=== PATIENT | female | born 1945 | race Caucasian/White ===

== ENCOUNTER 2018-10-01 21:31 | Inpatient (IN) | payer MEDICAID, MEDICARE | END 2018-10-07 21:55 | disposition home health service (06) | LOC: ED 21:31 → DU 10-02 00:31 → MU 10-04 14:44 → ED 21:31 → DU 10-02 00:31 → MU 10-04 14:44 → ED 21:31 → DU 10-02 00:31 → MU 10-04 14:44 → ED 21:31 → DU 10-02 00:31 → ED 21:31 → DU 10-02 00:31 → ED 21:31 → DU 10-02 00:31 → ED 21:31 → DU 10-02 00:31 → ED 21:31 → DU 10-02 00:31 → ED 21:31 → DU 10-02 00:31 | DX: T80.211A Bloodstream infection due to central venous catheter, initial encounter (principal); I35.8 Other nonrheumatic aortic valve disorders; I11.0 Hypertensive heart disease with heart failure; I50.9 Heart failure, unspecified; E03.9 Hypothyroidism, unspecified; E78.5 Hyperlipidemia, unspecified; Y83.8 Other surgical procedures as the cause of abnormal reaction of the patient, or of later complication, without mention of misadventure at the time of the procedure; D50.9 Iron deficiency anemia, unspecified; Y92.89 Other specified places as the place of occurrence of the external cause; Z79.82 Long term (current) use of aspirin; Z96.651 Presence of right artificial knee joint; Z68.34 Body mass index [BMI] 34.0-34.9, adult ==

== ENCOUNTER 2018-10-12 10:09 | Inpatient (IN) | payer MEDICAID, MEDICARE ==
[~2018-10-12] VITALS: Ht 177.8 cm; Wt 121.1 kg
[~2018-10-12 10:09] MED LIST: ASPIRIN CHILDRE81 MG PO; CARVEDILOL25 M1 PO; COZAAR100 MG PO; LEVOTHYROXIN0.125 M2 PO; LIPI10 PO; PANTOPRAZOLE SO40 M1 PO; ROC1I IV; VANCO 1 GR1 GM/150 M IV
--- NOTE | 2018-10-12 10:34 | NUR ---
PT CAME TO THE ED TODAY WITH CO ABNORMAL LABS. PT STATES SHE WAS JUST RELEASED HERE AFTER BEING ADMITTED FOR FEVER 5 DAYS AGO. PT STATES SHE RECEIVED A CALL STATING THAT HER K+ AND CALCIUM WERE LOW. PT STATES " I FEEL FINE, I JUST CAME HERE BECAUSE OF MY LABS." PT HAS A NOTED PIC LINE TO L ARM WHICH PT STATES SHE IS RECEIVING ABX FROM AT HOME FOR PERICARDITIS. AT THIS TIME PT IS AWAKE AND ALERT. BREATHING EVEN AND UNLABORED. DR GOLD AT BEDSIDE FOR MSE. PT IS HOOKED UP TO FULL MONITORS, SIDE RAILS UP, CALL LIGHT IN REACH, WILL CONTINUE TO MONITOR.
--- NOTE | 2018-10-12 10:54 | NUR ---
FLUID BOLUS INITIATED PER MD ORDER. NO OTHER ORDERS AT THIS TIME
--- NOTE | 2018-10-12 11:03 | NUR ---
PT UNABLE TO PROVIDE URINE SAMPLE AT THIS TIME. PT AWARE OF NEED FOR URINE
[2018-10-12 11:04] LABS: PLATELET COUNT 232 x10^3mcL (130-400)
--- NOTE | 2018-10-12 11:04 | NUR ---
PT DRINKING [employer] COFFEE BROUGHT FROM FAMILY. PER OK BY
[2018-10-12 11:06] LABS: RED CELL DISTRIBUTION WIDTH 22.3 % (11.5-14.5)
[2018-10-12 11:28] LABS: CALCIUM 7.1 mg/dL (8.5-10.1); CARBON DIOXIDE 20.2 mmol/L (21-32); CHLORIDE SERUM 102 mmol/L (98-107); CREATININE SERUM 2.4 mg/dL (0.6-1.0); GLUCOSE SERUM 82 mg/dL (74-106); POTASSIUM SERUM 3.6 mmol/L (3.5-5.1); SODIUM SERUM 134 mmol/L (136-145)
[2018-10-12] MEDS ORDERED: [UNRECOGNIZED DRUG - OTHER] IV (11:32)
[2018-10-12] MEDS ORDERED: ROC1I IV (11:32)
[2018-10-12 11:33] LABS: ALBUMIN 2.6 g/dL (3.4-5.0); ALKALINE PHOSPHATASE 67 U/L (46-116); ALT/SGPT 43 U/L (14-59); AST/SGOT 23 U/L (15-37); BILIRUBIN TOTAL 0.7 mg/dL (0.20-1.00); TOTAL PROTEIN, SERUM 6.9 g/dL (6.4-8.2)
[2018-10-12] MEDS ORDERED: VAN1I IV (11:34)
--- NOTE | 2018-10-12 11:47 | NUR ---
PT AMBULATED TO THE RESTROOM WITH STEADY GAIT AND ASSISTED WITH DAUGHTER
[2018-10-12 12:13] LABS: microscopic required? YES; urine erythrocyte 1+ (NEGATIVE)
[2018-10-12] MEDS ORDERED: OSTERA TABLET1 EACH PO (12:31)
--- NOTE | 2018-10-12 12:42 | NUR ---
DR ABAD AT BEDSIDE DISCUSSING RESULTS AND PLAN OF CARE
--- NOTE | 2018-10-12 13:28 | NUR ---
REPORT GIVEN TO VAUGHN MASCORRO ON MS/T FOR FURTHER CARE OF PT
--- NOTE | 2018-10-12 13:50 | NUR ---
RECEIVED PT FROM ED VIA [facility]CE, CAME IN DUE TO ABNORMAL LABS. AAOX4. DENIES HEADACHE/DIZZINESS. ABLE TO FOLLOW COMMANDS. C/O SOB, PLACED ON 2LPM/NC, O2 SAT=93%. DENIES CHEST PAIN/PRESSURE, SINUS TACHYCARDIA, HR AT 111. DENIES ABDOMINAL PAIN/NAUSEA/VOMITING. STATED THAT SHE HAS DIARRHEA X2 WEEKS, HAD 4 EPISODES TODAY. VOIDS. W/ IV SITE ON THE RAC, PATENT AND INTACT. W/ PICC LINE ON THE LUE, LAST DRESSING CHANGED WAS ON 10/10/18, PER PT LAST USE WAS YESTERDAY FOR ANTIBIOTIC ADMINISTRATION. SIDE RAILS UPX2. CALL LIGHT ON REACH. FAMILY AT BEDSIDE. HOB ELEVATED AT 45 DEG. PRIMARY NURSE VAUGHN AT BEDSIDE FOR CONTINUITY OF CARE
[2018-10-12 13:55] VITALS: BP 135/68
[2018-10-12 14:01] VITALS: Ht 177.8 cm; Wt 121.1 kg
--- NOTE | 2018-10-12 14:31 | NUR ---
PT RESTING IN BED AT THIS TIME, REPORTS SOB, STARTED ON 2L O2 VIA NC, UP TO 4L AT THIS TIME. O2 SAT 92-95, HR 115 AT THIS TIME. PT DENIED PAIN, ALERT AND ORIENTED X3. WILL CONTINUE TO MONITOR.
[2018-10-12 17:18] VITALS: BP 104/47
--- NOTE | 2018-10-12 18:49 | NUR ---
PT EATING AT THE BEDSIDE AT THIS TIME, IN NAD, O2 SAT 95 ON RA AT THIS TIME. PT ADVISED TO EAT WELL, AND USE I.S AT THE BEDSIDE. PT BP TO LOW STILL TO GIVE LASIX, MED RETURNED TO PYXIS. WILL REPORT TO MEDICAL ASSEMBLER NURSE AND ENDORSE CARE.
--- NOTE | 2018-10-12 20:00 | NUR ---
RECEIVED PT IN BED, RESTING QUIETLY.ALERT AND ORIENTED.DENIES HEADACHE/DIZZINESS. RESP. EVEN AND UNLABORED. ON ROOM AIR AT THIS TIME. DENIES SOB, NO ACUTE DISTRESS NOTED.SR /ST ON THE MONITOR, DENIES CP OR ANY DISCOMFORT AT THIS TIME. IVF, NS AT 10ML/HR, INTACT AND INFUSING TO RAC.SITE CLEAR. PICC LINE TO LUE.INTACT. VOIDING FREELY. ABLE TO USE THE BSC. ASSISTED WITH HS CARE, CALL LIGHT WITHIN REACH. WILL CONTINUE TO MONITOR.
[2018-10-12 20:34] VITALS: BP 106/73
--- NOTE | 2018-10-12 22:20 | NUR ---
CALLED TO PATIENT'S ROOM DUE TO SOB AND INCREASED WOB. PATIENT FOUND ON RA SPO2 82%, RR 28, BREATH SOUNDS DIMINISHED. RT BRIDGETT PLACED PATIENT ON 4L N/C, SPO2 UP TO 98% WITH CONTINUED INCREASED WOB. TALKED TO DR. GUTHRIE MYSELF FOR RTP FOR HHN TX'S, THE PATIENT HAD ORDERED PREVIOUS VISIT. HHN GIVEN WITH IMPROVED AEARATION AND SUBJECTIVE RELIEF. PATIENT STILL BREATHING HEAVILY. MOST RECENT CXR SHOWS PULMONARY CONGESTION, BNP IN 700'S FROM YESTERDAY. PLACED ON 3L N/C POST TX, WILL NOTIFY LUDWIN.
[2018-10-12 22:48] VITALS: BP 128/63
[2018-10-12 23:40] VITALS: BP 128/63
--- NOTE | 2018-10-12 23:48 | NUR ---
COMPLAINED OF SOB, PLACED 02 AT 3L/MIN VIA NC, LASIX IV ORDERED FOR 6PM, NOT GIVEN AT THAT TIME , GIVEN. B/P SHOWS 123/67,SAT. WELL. REMAINS ON RT PROTOCOL, TREATMENT GIVEN BY RT. ALEX. WELL. RESTING QUIETLY IN BED, WITH EYES CLOSED,APPEARS ASLEEP, EASILY AROUSABLE. NO ACUTE DISTRESS NOTED. WILL CONTINUE TO MONITOR.
--- NOTE | 2018-10-13 01:40 | NUR ---
EYES CLOSED AT THIS TIME, APPEARS ASLEEP, EASILY AROUSABLE. [address], ALEX. WEL. NO ACUTE DISTRESS NOTED. CALL LIGHT WITHIN REACH.WILLL CONTINUE TO MONITOR.
[2018-10-13 04:26] VITALS: BP 105/82
[2018-10-13 06:30] LABS: BASOPHIL % 0.3 % (0-2); PLATELET COUNT 225 x10^3mcL (130-400)
[2018-10-13 06:45] LABS: CALCIUM 7.2 mg/dL (8.5-10.1); CARBON DIOXIDE 16.3 mmol/L (21-32); CHLORIDE SERUM 103 mmol/L (98-107); CREATININE SERUM 2.6 mg/dL (0.6-1.0); GLUCOSE SERUM 84 mg/dL (74-106); POTASSIUM SERUM 3.9 mmol/L (3.5-5.1); SODIUM SERUM 136 mmol/L (136-145)
--- NOTE | 2018-10-13 06:46 | NUR ---
AFEBRILE AND VITAL SIGNS STABLE. DENIES CP OR ANY DISCOMFORT AT THIS TIME. DUE MEDS GIVEN ORDERED, ALEX. WELL. RESP. EVEN AND UNLABORED. NO ACUTE DISTRESS NOTED. IVF INTACT AND INFUSING WELL, SITE CLEAR. VOIDING FREELY. NO COMPLAINTS NOTED AT THIS TIME. WILL ENDORSE TO INCOMING NURSE.
[2018-10-13 06:54] LABS: RED CELL DISTRIBUTION WIDTH 22.2 % (11.5-14.5)
[2018-10-13 07:35] VITALS: BP 144/74
[2018-10-13 09:19] VITALS: BP 144/78
--- NOTE | 2018-10-13 09:30 | NUR ---
AT 0710 - RECEIVED PATIENT FROM NIGHT NURSE. SLEEPING. RESPIRATIONS REGULAR. MONITOR SHOWING SINUS TACH; RATE 110. IV AT TKO RATE OF 10ML/HR. AT 0740 - PATIENT REPORTS BREATHING DIFFICULTIES. APPEARS ANXIOUS. SAT UP AND REPOSITIONED IN BED. REASSURANCE PROVIDED. BP 144/74. HR 118. RR 30. O2 SAT 96% TEMP 100.2 CALLED RT FOR BREATHING TREATMENT. AT 0755 - GIVEN SCHEDULED DOSE OF IV LASIX. PATIENT RECEIVING BREATHING TREATMENT. AT 0830 - PATIENT RESTING QUIETLY. APPEARS COMFORTABLE AT THIS TIME. AT 0915 - HAS USED BSC TO VOID AND FOR BM.
--- NOTE | 2018-10-13 11:55 | NUR ---
Discount pharmacy card and list to low cost medical clinics given to patient by Lizzie.
--- NOTE | 2018-10-13 12:30 | NUR ---
PATIENT HAS BEEN AMBULATING TO BATHROOM FOR TOILET NEEDS. HAS HAD SEVERAL LOOSE BM. APPEARS LESS SHORT OF BREATH.
[2018-10-13 12:51] VITALS: BP 93/47
--- NOTE | 2018-10-13 15:26 | NUR ---
IV IN RAC OUT OF VEIN. IV RESITED IN RFA AND ROCEPHIN NOW IN PROGRESS. BEING SEEN BY MACHINE BUNCH MAKER AT THIS TIME.
[2018-10-13 16:21] VITALS: BP 91/49
--- NOTE | 2018-10-13 18:26 | NUR ---
AT 1740 - IV INFUSION OF NaHCO3 IN 1/2 NS AT 75 ML/HR. PATIENT C/O CHILLS. NO FEVER AT THIS TIME. AT 1820 - C/O HEADACHE AND MEDICATED WITH TYLANOL PER EMAR. RESTING INBED. DECLINED FOOD AT THIS TIME. WILL ENDORSE CARE TO NIGHT NURSE.
--- NOTE | 2018-10-13 19:45 | NUR ---
AWAKE AND VERBALLY RESPONSIVE. ABLE TO MAKE NEEDS KNOWN./ SKIN WARM AND DRY TO TOUCH. RESPIRATION EVEN AND UNLABORED WITH DIMINISHED LUNG SOUN BILATERAL BASES. ON TELE #5 WITH SR AT 85/MIN. PICC LINE ON THE ROBBIE, NO USING AT THIS TIME, IV ACCESS AT THE RFA #22 INTACT AND PATENT WITH NAHCO3 AT 75ML/HR TOLERATING WELL. DENIES ANY CHEST PAIN/DISCOMFORT AT THSI TIME.
[2018-10-13 22:18] VITALS: BP 90/49
--- NOTE | 2018-10-13 22:20 | NUR ---
OTWV=231.9F, TYLENOL 650MG PO PRN MEDICATION FOR FEVER. DR MURRAY MADE AWARE OF INTERMITTENT FEVER. DR MURRAY MADE NEW ORDERS AND CARRIED OUT. WILL START VANO PO . DIFLUCCAN IV EMPIRIC MANAGEMENT OF ENDOCARDITIS. DR MURRAY TALKED TO PATIENT REGARDING PT'S CONDITION. WILL CONTINUE TO MONITOR.
--- NOTE | 2018-10-13 22:20 | NUR ---
ZMBR=660.9F. COOLIMG MEASURES RENDERED. OFFERED TYLENOL 650MG ,M PT REFUSED AT THIS TIME. DR MURRAY MADE AWARE OF INTERMITTENT FEVER. TALKED TO PT REGARDING CURRENT PT'S CONDITION AND CURRENT PLAN OF TREATMENT AND CARE . STATED WILL ORDER ADDITIONAL EMPIRIC ATB FOR MANAGEMTN OF ENDOCARDITIS VANCO PO AND DIFLUCAN IV. WILL ALSO COLLECT RUPINDER FOR D-DIFFICILE TOXIN WHEN BM IS AVAILABLE.
[2018-10-14] VITALS (7 sets, daily range): BP systolic 90–105; BP diastolic 40–71
--- NOTE | 2018-10-14 | NUR ---
TEMP RECHECK 98.4F. ABLE TO SLEEP AT SHORT INTERVALS. ABLE TO AMBULATE TO BATRHROOM FOR BLADDER ELIMINATION. NO BM AT THIS TIME.
--- NOTE | 2018-10-14 06:05 | NUR ---
TO INCOMING SHIFT TO NO BM THIS SHIFT. WILL ENDORSE TO INCOMING SHIFT FOR FOLLOW UP STOOL COLLECTION FOR S-
--- NOTE | 2018-10-14 06:08 | NUR ---
NO BM THIS SHIFT. WILL ENDORSE TO INCOMING SHIFT FOR FOLLOW UP OF COLLECTING STOOL SPECIMNE FOR C-DIFF. NO ADVERSE REACTION NOTED FROM ATB THERAPY. ALL NEEDS ATTEDNED.
[2018-10-14 07:38] LABS: BASOPHIL % 0.3 % (0-2); PLATELET COUNT 228 x10^3mcL (130-400); RED CELL DISTRIBUTION WIDTH 22.3 % (11.5-14.5)
[2018-10-14 08:02] LABS: MAGNESIUM 1.7 mg/dL (1.8-2.4); PHOSPHOROUS 5.5 mg/dL (2.5-4.9)
[2018-10-14 08:13] LABS: CARBON DIOXIDE 14.8 mmol/L (21-32); CHLORIDE SERUM 102 mmol/L (98-107); CREATININE SERUM 3.1 mg/dL (0.6-1.0); GLUCOSE SERUM 75 mg/dL (74-106); POTASSIUM SERUM 3.7 mmol/L (3.5-5.1); SODIUM SERUM 134 mmol/L (136-145)
--- NOTE | 2018-10-14 10:19 | NUR ---
AT 0710 - RECEIVED PATIENT FROM NIGHT NURSE. SLEEPING. RESPIRATIONS REGULAR. MONITOR SHOWING SINUS RHYTHM; RATE 80'S. IV INFUSING 1/2NS WITH NAHCO3 AT 75 ML/HR. AT 0720- - PATIENT HAVING OCCASIONAL PVC'S ON THE MONITOR. CONTINUING TO MONITOR. AT 0800 - AWAKE, ALERT AND ORIENTED. NO C/O PAIN. AMBULATED TO BATHROOM. PATIENT REPORTS STIL HAVING DIARRHEA. AWARE OF NEED TO COLLECT SPECIMEN. PRESPIRATIONS REGULAR WITH SLIGHT SOB ON EXERTION. AT 0850 - COLLECTED STOOL AND TAKEN TO LAB FOR C-DIFF. AT 0920 - COMMENCED ON DIFLUCAN. FIRST DOSE IN PROGRESS. AT 1025 - PATIENT'S DAUGHTER AT BEDSIDE. SPOKE WITH PATIENT AND DAUGHTER ABOUT CURRENT PLAN OF CARE.
--- NOTE | 2018-10-14 10:24 | NUR ---
CALLED TO PHARMACIST AND SPOKE WITH JOHNEI AND MADE AWARE THE RESULTS OF THE VANCO RANDOM.
--- NOTE | 2018-10-14 11:09 | NUR ---
AT 1052 - PATIENT HAD SHORT RUN OF V-TACH (5 CONSECUTIVE PVC BEATS). PATIENT ASYMPTOMATIC. BP 92/63 HR 87. RR 22. TEMP 98.7. NO CHEST PAIN. AT 1059 - SPOKE WITH LATA FAGAN. MADE AWARE OF V-TACH. NO CHANGE IN ORDERS.
--- NOTE | 2018-10-14 12:22 | NUR ---
AT 1150 - C/O HEADACHE. MEDICATED WITH TYLANOL PER EMAR. APTIENT C/O CHILLS. TEMP 99.4 AT 1215 - PATIENT HAVING BREATHING TREATMENT. SHARON CRACKLES ON AUSCULTATION. SPOKE WITH LATA FAGAN - LASIX WAS PLACED ON HOLD YESTERDAY. RECEIVED ORDER FOR 1 X IV LASIX 20 MG. BP 90/57 MAP 68. PER EMERGENCY VEHICLE OPERATOR RYLAN, OK TO GIVE LASIX WITH THIS BP.
--- NOTE | 2018-10-14 15:22 | NUR ---
PATIENT VOIDED 1 X SINCE RECEIVING LASIX. UNABLE TO MEASURE AMOUNT DUE TO URINE GOING OUTSIDE OF CONTAINER. SCHEDULED ROCEPHIN NOW IN PROGRESS. FAMILY AT BEDSIDE.
--- NOTE | 2018-10-14 18:25 | NUR ---
AWAKE, ALERT AND ORIENTED. MONITOR SHOWING SINUS RHYTHM WITH OCCASIONAL PVC. NO CHEST PAIN. RESPIRATIONS REGULAR. ON O2 VIA NC AT 2L. AMBULATES TO BATHROOM FOR TOILET NEEDS BUT PATIENT APPEARS TO HAVE REDUCED URINE OUTPUT. DIARRHEA X 1 ONLY THIS PM. AWAITING RESULT FOR C-DIFF. IV INFUSING SODIUM BICARB AT 75 ML/HR. FAMILY MEMBERS AT BEDSIDE AND ATTENTIVE TO PATIENT. WILL ENDORSE CARE TO NIGHT NURSE.
--- NOTE | 2018-10-14 19:30 | NUR ---
A/O x4. ON TELE #5, NSR, DENIES ANY CHEST PAIN OR PRESSURE. PULSES ARE PRESENT. NO EDEMA NOTED. DIMINISHED LUNG SOUNDS ON BLL. ON 4L NC, SLIGHT SOB WITH ACTIVITY. WHEN TALKING FOR PROLONG TIME YOU CAN SEE THE PT GET OUT OF BREATH. EQUAL CHEST RISE AND FALL. BOWEL SOUNDS PRESENT. PT C/O LOOSE STOOLS. DENIES ANY ABD PAIN OR DISCOMFORT. SKIN WARM AND INTACT. DENIES ANY PAIN AT THIS TIME. IV ON RFA INTACT AND PATENT. NO SIGN OF IRRITATION OR INFILTRATION NOTED. PICC ON ROBBIE INTACT AND CLEAN. FAMILY IS AT BEDSIDE. BED IS AT LOWEST SETTING. TORIN LIGHT WITHIN REACH. WILL CONTINUE TO MONTIOR.
--- NOTE | 2018-10-15 00:33 | NUR ---
PT RESTING IN BED WITH BOTH EYES CLOSED. BREATHING EVEN AND UNALBORED. NO SIGN OF DISTRESS NOTED. ON 2L NC. BED AT LOWEST SETTING. CALL LIGHT WITHIN REACH. WILL CONTINUE TO MONTIOR.
--- NOTE | 2018-10-15 01:38 | NUR ---
PT WENT FROM SR TO AFIB. PT IS SHOWS NO SYMTPOMS. B/P 101/59 (53), HR 120S, RR 21, SPO2 99%. DENIES ANY CHEST PAIN OR PRESSURE. MD DIOR IS MADE AWARE. MD TO INPUT ORDERS. WILL CONTINUE TO MONITOR.
--- NOTE | 2018-10-15 02:17 | NUR ---
EKG WAS COMPLETED AND IT SHOWED AFIB. CARDIZEM 5MG WAS PUSHED PER EMAR. WILL CONTINUE TO MONITOR.
--- NOTE | 2018-10-15 02:30 | NUR ---
B/P IS 97/59 (69), HR 103 AFTER MED PUSH. MD DIOR AWARE. WILL CONTIUE TO MONITOR.
[2018-10-15 04:49] VITALS: BP 107/68
--- NOTE | 2018-10-15 06:56 | NUR ---
PT IS RESTING IN BED. STILL SHOWING A FIB. MD DIOR IS AWARE. NO OTHER ACUTE EVENT OCCURED AT NIGHT. IV INTACT AND CLEAN. BED IS AT LOWEST SETTING. CALL LIGHT WITHIN REACH. WILL ENDORSE TO AM NURSE.
[2018-10-15 07:43] LABS: CALCIUM 6.6 mg/dL (8.5-10.1); CARBON DIOXIDE 17.4 mmol/L (21-32); CHLORIDE SERUM 101 mmol/L (98-107); GLUCOSE SERUM 89 mg/dL (74-106); POTASSIUM SERUM 3.6 mmol/L (3.5-5.1); SODIUM SERUM 133 mmol/L (136-145)
[2018-10-15 07:53] LABS: BASOPHIL % 0.2 % (0-2); PLATELET COUNT 227 x10^3mcL (130-400)
[2018-10-15 07:55] LABS: RED CELL DISTRIBUTION WIDTH 22.5 % (11.5-14.5)
[2018-10-15 07:56] LABS: rbc morphology (normal/abnorm) ABNORMAL (NORMAL)
--- NOTE | 2018-10-15 08:27 | NUR ---
AT 0720 - RECEIVED PATIENT FROM NIGHT NURSE. AWAKE, ALERT AND ORIENTED. SITTING ON BEDSIDE COMODE. PATIENT C/O HEADACHE. AT 0730 - MEDICATED WITH TYLANOL PER EMAR. AT 0750 - RECEIVED CALL FROM PATIENT'S DAUGHTER, FLORES. UPDATED ON PATIENT. SHE WILL BE IN LATER. PATIENT BACK IN BED. MONITOR SHOWING A-FIB; RATE 102. IV INFUSING NAHCO3 IN 1/2 NS AT 75 ML/HR. RESPIRATIONS REGULAR. WITH SOB ON EXERTION. COARSE BREATH SOUNDS SHARON.
[2018-10-15 08:36] VITALS: BP 92/44
[2018-10-15 09:15] VITALS: BP 104/79
--- NOTE | 2018-10-15 09:28 | NUR ---
SITTING ON SIDE OF BED EATING BREAKFAST. REPROTS RELIEF OF HEADACHE. SPOKE WITH PHARMACIST REGARDING SCHEDULED DOSE OF FLUCONAZOLE - PATIENT'S BUN/CR = 40/4.0. HOLD DOSE FOR TODAY. PHARMACY WILL ADJUST DOSE - REDUCED TO 100 MG Q 48 HR.
--- NOTE | 2018-10-15 09:46 | NUR ---
RECEIVED CALL FROM LATA FAGAN. PATIENT TO BE TRANSFERRED TO ICU FOR AMIODERONE DRIP. SPOKE WITH PATIENT AND MADE HER AWARE.
--- NOTE | 2018-10-15 10:16 | NUR ---
CALLED PATIENT'S DAUGHTER, MILLIE AND INFORMED HER OF PLAN TO TRANSFER PATIENT TO ICU.
--- NOTE | 2018-10-15 10:40 | NUR ---
TONY RN, JUAN RN, MYSELF, MOMO RN AT BEDSIDE. PT TRANSFER FROM 256 TO ICU 6 BY BED. PT IS ABLE TO TRANSFER SELF FROM BED TO BED WITHOUT ASSITS. PT IS AAOX4 ABLE TO FOLLOW VERBAL COMMANDS AND VERBALIZE NEEDS. PT RECIEVING 2LO2 VIA NASAL CANNULA. DIMINISH LUNG SOUNDS TO BL LUNG FARMER. SOB NOTED ON EXCERTION. EVEN CHEST RISE. PT DENIES CHEST PAIN AND HEART PALPITATIONS, PRESSURE TO CHEST. ORIENTED PT TO ROOM AND CALL LIGHT BED AT LOWEST POSITION. CALL LIGHT WITHIN REACH.
--- NOTE | 2018-10-15 10:47 | NUR ---
MOSES TRANSFERRED TO ICU. CARE ENDORSED TO ICU NURSE.
--- NOTE | 2018-10-15 11:05 | NUR ---
AMIODARONE LOADING DOSE ADMINISTERED PER PROTOCOL. PT TOLERATING HR 99.
--- NOTE | 2018-10-15 11:15 | NUR ---
AMIODARONE DRIP AT 1MG/MIN.
[2018-10-15 11:47] VITALS: BP 85/47
--- NOTE | 2018-10-15 13:01 | NUR ---
SPOKE WITH CHLOÉ MASCORRO AND REPORTED PATIENT WITH BP 81/47 (MAP 57) AND PATIENT STATING SHE IS FEELING DIZZY. ORDER RECEIVED TO BOLUS PATIENT WITH 500 ML NS AND MIDODRINE 5 MG PO BID. WILL CARRY OUT ORDERS.
--- NOTE | 2018-10-15 13:06 | NUR ---
MAP TRENDING AT MID 50'S NOTIFIED CHLOÉ GUIDO. PER CHLOÉ GUIDO TO BOLUS PT 500ML NS TO ACHIEVE MAP 65.
--- NOTE | 2018-10-15 14:13 | NUR ---
SPOKE WITH CHLOÉ GUIDO AND REPORTED PATIENT'S BP REMAINS LOW WITH BP 60/45, MAP 49, HR 95 A-FIB AND PATIENT RECEIVED MIDODRINE 5 MG PO APPROX. 20 MINUTES AGO. PER CHLOÉ, TURN AMIO. DRIP OFF AND BOLUS WITH ANOTHER 500 ML NS. WILL CARRY OUT ORDERS. WILL CONTINUE TO MONITOR.
--- NOTE | 2018-10-15 14:14 | NUR ---
AMIO DRIP OFF, 500ML/HR BOLUS IN PLACE.
--- NOTE | 2018-10-15 14:43 | NUR ---
500ML OF NS BOLUS COMPLETED, B/P 83/56 MAP 67.
[2018-10-15 15:00] VITALS: BP 76/52
--- NOTE | 2018-10-15 15:10 | NUR ---
PATIENT C/O FEELING ANXIOUS. ADMINISTER ATIVAN 1 MG IVP FOR ANXIOUSNESS.
--- NOTE | 2018-10-15 15:38 | NUR ---
SPOKE WITH CHLOÉ GUIDO AND REPORTED BP 66/31, MAP 56 WITH HR 102 A-FIB. NEW ORDERS RECEIVED. WILL CARRY OUT ORDERS. WILL CONTINUE TO MONITOR.
--- NOTE | 2018-10-15 15:40 | NUR ---
DHEERAJ RN AT BEDSIDE AND INSERTED #20 GAUGE IV TO RIGHT HAND. GOOD BLOOD RETURN NOTED.
--- NOTE | 2018-10-15 15:50 | NUR ---
USING ASEPTIC TECHNIQUE, #16 ROMANSH MARQUEZ CATHETER INSERTED. SMALL AMOUNT OF CLOUDY URINE RETURNED IN TUBING. PATIENT TOLERATED WITH NO S/S OF DISTRESS.
--- NOTE | 2018-10-15 15:50 | NUR ---
B/P 74/52 MAP 60 HR 113 NEOSYENPHRINE STARTED AT 50MCG/MIN TO ACHIEVE MAP 65.
--- NOTE | 2018-10-15 16:00 | NUR ---
DR HOLLIDAY AT BEDSIDE DISCUSSING CENTRAL LINE PLACEMENT. RISKS AND BENEFITS DISCUSSED WITH ALL QUESTIONS AND CONCERNS ADDRESSED. CONSENT OBTAINED AND WITNESSED BY MYSELF.
--- NOTE | 2018-10-15 16:15 | NUR ---
TIME OUT AT BEDSIDE, DR. HOLLIDAY VERFIED TIME OUT AT BEDSIDE.
--- NOTE | 2018-10-15 16:30 | NUR ---
SPOKE WITH CHLOÉ GUIDO AND PROVIDED PATIENT UPDATE. NEW ORDERS RECEIVED. WILL CARRY OUT ORDERS.
--- NOTE | 2018-10-15 18:34 | NUR ---
CXR AT BEDSIDE TO CONFIRM LIJ CVC PLACEMENT.
--- NOTE | 2018-10-15 18:50 | NUR ---
PROVIDED PT STATUS UPDATES TO DR. WARE THAT PT IS ON NEOSYNEPHRINE DRIP AT 50MCG/MIN AND REMAINS IN A FIB. PER DR. WARE TO RESUME AMIODARONE DRIP AND START HEPARIN DRIP TO DVT. READ BACK ORDERS TO DR. WARE TO VERIFIED. IN AGREEMENT OF ORDER.
--- NOTE | 2018-10-15 18:50 | NUR ---
PT NBP 88/44 MAP (55) HR 126, NEOSYNEPHRINE TITRATED FROM INITIAL RATE OF 50 MCG/MIN UP TO RATE OF 75 MCG/MIN TO ACHIEVE MAP OF 65.
--- NOTE | 2018-10-15 19:30 | NUR ---
RECEIVED REPORT FROM LUDWIN CHARLES. PT IS ALERT AND ORIENTED X2. PERRLA PRESENT. PT IS BREATHING E/U ON 2L NC. LUNG SOUNDS DIMINISHED TO BILATERAL UPPER AND LOWER LOBES. S1 S2 HEART SOUNDS AUSCULTATED. PT CURRENTLY IN A FIB. LIJ CVC PATENT, DRESSING CDI. RIGHT WRIST PERIPHERAL IV PATENT, DRESSING CDI, LEFT UPPER EXTREMITY PICC LINE NOT FLUSHING SMOOTHLY. SODIUM BICARB INFUSING AT 60 ML/HR AND NEOSYNEPHRINE INFUSING AT 75 MCG/MIN. TRACE EDEMA TO BLE. CAP REFILL <3 SECONDS X4. PULSES MODERATE X2 BUE, WEAK BLE. SKIN WARM AND CONSISTENT WITH ETHNICITY. ABD IS SOFT AND ROUNDED WITH ACTIVE BOWEL SOUNDS X4Q. MARQUEZ DRAINING VIA GRAVITY. URINE IS YELLOW WITH FAIR OUTPUT. PT ABLE TO CHANGE POSITIONS WITH ASSISTANCE.
--- NOTE | 2018-10-15 20:17 | NUR ---
TITRATED NEOSYNEPHRINE FROM 75 MCG/MIN TO 85 MCG/MIN FOR BP OF 64/50 (55).
--- NOTE | 2018-10-15 20:45 | NUR ---
INITIATED AMIODARONE DRIP AT 1 MG/HR. GAVE LOADING DOSE OF 7100 U OF HEPARINA AND INITIATED HEPARIN DRIP AT 1400 U/HR. WILL ASK DRCorazon FOR LAB ORDERS.
--- NOTE | 2018-10-15 21:09 | NUR ---
PT COMPLAINING OF HEADACHE. TYLENOL GIVEN.
--- NOTE | 2018-10-15 21:45 | NUR ---
TITRATED NEOSYNEPHRINE FROM 85 MCG/MIN TO 95 MCG/MIN FOR BP OF 72/43 (53).
--- NOTE | 2018-10-15 21:49 | NUR ---
DR. WHEAT AT BEDSIDE FOR UPDATES. ALL QUESTIONS AND CONCERNS ANSWERED.
--- NOTE | 2018-10-15 22:05 | NUR ---
PT HAS A TEMPERATURE OF 100.4, COOLING MEASURES BEING TAKEN.
--- NOTE | 2018-10-15 22:28 | NUR ---
TITRATED PARISA SYNEPHRINE FROM 95 MCG/MIN TO 110 MCG/MIN FOR BP OF 68/44 (54).
--- NOTE | 2018-10-15 22:55 | NUR ---
NEOSYNEPHRINE TITRATED FROM 110 MCG/MIN TO 150 MCG/MIN FOR LOW BP.
--- NOTE | 2018-10-15 22:55 | NUR ---
UPON ARRIVAL TO ROOM, PATIENT STOPPED TALKING AND BECAME UNRESPONSIVE. PULSES WERE NOT PRESENT. PT IN ASYSTOLE. CPR INITIATED. JHONATAN [place] CALLED. DR. GOLD AT BEDSIDE. MEDICATIONS PROVIDED: 2255: EPINEPHRINE, SODIUM BICARBONATE, AND CALCIUM 2256: PT INTUBATED- 7.0 ETT AT 22 CM AT THE LL. 2257: EPINEHRINE 2301: EPINEPHRINE 2305: SODIUM BICARBONATE AND CALCIUM. 2305: CODE ENDED. PULSE RESTORED. 2340: OGT PLACED. AND CHEST XRAY TAKEN. PT'S FAMILY WAS AT BEDSIDE DURING INCIDENT. ALL THAT OCCURRED WAS EXPLAINED TO FAMILY BY DR. GUTHRIE AND MYSELF.
--- NOTE | 2018-10-15 23:00 | NUR ---
AMIODARONE DRIP TURNED OFF PER CHARGE NURSE.
--- NOTE | 2018-10-15 23:30 | NUR ---
TITRATED NEOSYNEPHRINE FROM 150 MCG/MIN TO 200 MCG/MIN FOR LOW BP.
--- NOTE | 2018-10-15 23:58 | NUR ---
TITRATED SODIUM BICARB FROM 60ML/HR TO 200ML/HR PER DR GUTHRIE.
[2018-10-16] VITALS (15 sets, daily range): BP systolic 96–132; BP diastolic 40–77
--- NOTE | 2018-10-16 | NUR ---
TITRATED NEOSYNEPHRINE FROM 200 MCG/MIN TO 250 MCG/MIN FOR LOW BP.
--- NOTE | 2018-10-16 00:05 | NUR ---
LEVOPHED INITIATED AT 8 MCG/MIN FOR LOW BP.
--- NOTE | 2018-10-16 00:15 | NUR ---
TITRATED LEVOPHED FROM 8 MCG/MIN TO 15 MCG/MIN FOR LOW BP. DR. DIOR CALLED FOR ANOTHER BP MEDICATION.
[2018-10-16 00:16] LABS: PLATELET COUNT 193 x10^3mcL (130-400)
[2018-10-16 00:21] LABS: RED CELL DISTRIBUTION WIDTH 22.9 % (11.5-14.5)
[2018-10-16 00:23] LABS: CALCIUM 8.4 mg/dL (8.5-10.1); CARBON DIOXIDE 16.7 mmol/L (21-32); CHLORIDE SERUM 98 mmol/L (98-107); GLUCOSE SERUM 120 mg/dL (74-106); MAGNESIUM 2.2 mg/dL (1.8-2.4); POTASSIUM SERUM 4.5 mmol/L (3.5-5.1); SODIUM SERUM 134 mmol/L (136-145)
--- NOTE | 2018-10-16 00:30 | NUR ---
TITRATED NEOSYNEPHRINE FROM 250 MCG/MIN TO 300 MCG/MIN. MAXED OUT.
--- NOTE | 2018-10-16 00:30 | NUR ---
TITRATED LEVOPHED FROM 15 MCG/MIN TO 20 MCG/MIN TO 30 MCG/MIN FOR LOW BP.
[2018-10-16 00:42] LABS: CREATININE SERUM 4.9 mg/dL (0.6-1.0)
[2018-10-16 00:43] LABS: PHOSPHOROUS 9.1 mg/dL (2.5-4.9)
--- NOTE | 2018-10-16 00:50 | NUR ---
DOPAMINE INITATED AT 5 MCG/KG/MIN FOR LOW BP.
--- NOTE | 2018-10-16 01:55 | NUR ---
TITRATED PT FIO2 FROM 100% TO 60% ON VENTILATOR POST ABG RESULTS.
--- NOTE | 2018-10-16 02:00 | NUR ---
TITRATED DOPAMINE FROM 5 MCG/KG/MIN TO 7 MCG/KG/MIN FOR LOW BP.
[2018-10-16 02:45] LABS: BAND NEUTROPHIL 4 % (0-10); METAMYELOCTE 2 % (0-2); MONOCYTE 5 % (0-7); SEGMENTED NEUTROPHILS 80 % (37-75)
[2018-10-16 02:47] LABS: PLATELET MORPHOLOGY PLATELETS NORMAL; acanthocyte (spur cell) 2+; ovalocyte/elliptocyte 2+; rbc morphology (normal/abnorm) ABNORMAL (NORMAL)
[2018-10-16 03:02] LABS: CALCIUM 7.9 mg/dL (8.5-10.1); CARBON DIOXIDE 14.1 mmol/L (21-32); CHLORIDE SERUM 97 mmol/L (98-107); GLUCOSE SERUM 113 mg/dL (74-106); MAGNESIUM 2.1 mg/dL (1.8-2.4); PHOSPHOROUS 8.3 mg/dL (2.5-4.9); POTASSIUM SERUM 4.8 mmol/L (3.5-5.1); SODIUM SERUM 131 mmol/L (136-145)
[2018-10-16 03:04] LABS: CREATININE SERUM 4.9 mg/dL (0.6-1.0)
--- NOTE | 2018-10-16 03:12 | NUR ---
DOPAMINE TITRATED FROM 7 MCG/KG/MIN TO 10 MCG/KG/MIN FOR DECREASED BP.
--- NOTE | 2018-10-16 03:13 | NUR ---
PT'S FAMILY WISHED TO TALK TO THE DOCTOR ABOUT STATUS OF THE PATIENT. DR. DIOR WITH FAMILY AT BEDSIDE.
[2018-10-16 03:31] LABS: PLATELET COUNT 193 x10^3mcL (130-400)
[2018-10-16 03:33] LABS: RED CELL DISTRIBUTION WIDTH 22.4 % (11.5-14.5)
--- NOTE | 2018-10-16 04:07 | NUR ---
BLOOD TRANSFUSION INITIATED. BEGININNIG VITALS INCLUDE: TEMP: 97.4, PULSE: 73, BP: 107/51, RR: 24, O2: 100%. WILL LOOK OUT FOR ADVERSE EFFECTS, AND CHECK BACK IN 15 MINUTES.
--- NOTE | 2018-10-16 04:22 | NUR ---
15 MINUTE VITAL SIGNS FOR BLOOD TRANSFUSION INCLUDES TEMP: 98.6, PULSE: 73, 108/79, RR: 24, O2: 100%. NO ADVERSE REACTIONS NOTED.
[2018-10-16 05:11] LABS: BAND NEUTROPHIL 7 % (0-10); METAMYELOCTE 3 % (0-2); MONOCYTE 8 % (0-7); SEGMENTED NEUTROPHILS 75 % (37-75)
[2018-10-16 05:14] LABS: PLATELET MORPHOLOGY PLATELETS NORMAL; acanthocyte (spur cell) 3+; ovalocyte/elliptocyte 2+; rbc morphology (normal/abnorm) ABNORMAL (NORMAL); tear drop cell (dacryocyte) 1+
--- NOTE | 2018-10-16 06:13 | NUR ---
TITRATED DOPAMINE FROM 10 MCG/KG/MIN TO 7 MCG/KG/MIN.
--- NOTE | 2018-10-16 06:32 | NUR ---
FIRST BLOOD BAG FINISHED. FINAL VITALS INCLUDE TEMP: 97.0, HR: 78, BP: 149/54, RR: 26, O2: 100%. NO ADVERSE EVENTS NOTED.
--- NOTE | 2018-10-16 06:32 | NUR ---
TITRATED DOPAMINE FROM 7 MCG/KG/MIN TO 5 MCG/KG/MIN FOR BP OF 131/67 (93).
--- NOTE | 2018-10-16 06:41 | NUR ---
TITRATED LEVOPHED FROM 30 MCG/MIN TO 20 MCG/MIN FOR BP OF 153/64 (98). TITRATED DOPAMINE FROM 5 MCG/KG/MIN TO 3 MCG/KG/MIN.
--- NOTE | 2018-10-16 07:48 | NUR ---
TITRATED NEOSYNEPHRINE FROM 300 MCG/KG/MIN TO 280 MCG/KG/MIN.
--- NOTE | 2018-10-16 08:35 | NUR ---
PTT = 62.4. HEPARIN DRIP @ 1400 UNITS/HR, THERAPEUTIC.
--- NOTE | 2018-10-16 08:36 | NUR ---
DECREASED FIO2 TO 30% POST ABG COLLECTION AND RESULTS VERIFIED, LUDWIN CASTELLANOS.
--- NOTE | 2018-10-16 08:45 | NUR ---
FIO2 TITRATED TO 30% BY RT.
--- NOTE | 2018-10-16 08:45 | NUR ---
TRANSFUSION OF 2ND UNIT PRBC INITIATED AT THIS TIME.
--- NOTE | 2018-10-16 11:00 | NUR ---
PRBC TRANSFUSION COMPLETED AT THIS TIME. NO ADVERSE REACTION NOTED.
--- NOTE | 2018-10-16 11:56 | NUR ---
RECIEVED REPORT FROM LUDWIN CLARKE TO ASSUME ALL CARES. ALL QUESTIONS AND CONCERNS ADDRESSED. WILL CONTINUE TO MONITOR.
--- NOTE | 2018-10-16 16:41 | NUR ---
COMPLETE BATH COMPLETED. [facility] CARE PROVIDED. SMALL SKIN TEAR NOTED TO SACRAL AREA 1.5 CM X 0.5 CM. PICTURE DONE AND PLACED IN CHART. [employer] APPLIED C/D/I. LUE PICC LINE DC'D WITH CATH TIP INTACT. CATH TIP CUT AND SENT FOR CULTURE ORDERED. PATIENT POSITIONED TO RIGHT SIDE WITH HOB ELEVATED AND PILLOWS IN PLACE TO ALLEVIATE PRESSURE POINTS. LIJ TLC DRESSING CHANGED VIA STERILE TECHNIQUE, SITE IS CLEAN WITH NO SIGNS OF ERYTHEMA OR EDEMA. PATIENT TOLERATED WELL, FAMILY LET BACK IN THE ROOM. WILL CONTINUE TO MONITOR.
--- NOTE | 2018-10-16 17:13 | NUR ---
NIBP 119/80, MAP 89. LEVOPHED DRIP TITRATED OFF AND PARISA-SYNEPHRINE DRIP REMAINS INFUSING AT 75 MCG/MIN. WILL CONTINUE TO MONITOR.
--- NOTE | 2018-10-16 18:19 | NUR ---
INCREASED RR TO 18 AND ADVANCED ETT 2CM TO 24CM AT THE LIP PER DR. VITO WOMACK.
--- NOTE | 2018-10-16 18:56 | NUR ---
NIBP 117/67, MAP 92. PARISA-SYENPHRINE DRIP TITRATED OFF. WILL CONTINUE TO MONITOR.
--- NOTE | 2018-10-16 19:44 | NUR ---
TUBE FEEDING TITRATED TO 30 ML/HR, PT TOLERATING FEEDING. GRV=50 ML/HR AND REPLACED. NO S/S OF N/V.
--- NOTE | 2018-10-16 19:50 | NUR ---
RT ARLET AT BEDSIDE FOR BREATHING TREATMENT.
--- NOTE | 2018-10-16 23:58 | NUR ---
DR. MURRAY AT BEDSIDE TO ASSESS PT. UPDATES PROVIDED AND QUESTIONS ANSWERED. NO NEW ORDERS AT THIS TIME.
[2018-10-17] VITALS (19 sets, daily range): BP systolic 82–125; BP diastolic 53–72
--- NOTE | 2018-10-17 01:36 | NUR ---
FENTANYL GTT INITIATED @ 0.5 MCG/KG/HR AND VERSED GTT @ 1 MG/HR. PT RESPIRATORY RATE IN THE 30'S, AGONAL BREATHING AND VENT ALARMING WITH HIGH PRESSURE. PT SUCTIONED AT THIS TIME, SCANT DRAINAGE NOTED.
--- NOTE | 2018-10-17 02:00 | NUR ---
VERSED TITRATED TO 0.5 MG/HR, RSS=6.
--- NOTE | 2018-10-17 02:30 | NUR ---
FENTANYL TITRATED OFF AT THIS TIME, RSS=6.
--- NOTE | 2018-10-17 04:59 | NUR ---
TOTAL CARE BED BATH PROVIDED. MARQUEZ CARE PROVIDED. DELLA FRANCOIS CHUCKS CHANGED AT THIS TIME.
[2018-10-17 05:34] LABS: PLATELET COUNT 146 x10^3mcL (130-400)
[2018-10-17 05:35] LABS: BASOPHIL % 0 % (0-2); RED CELL DISTRIBUTION WIDTH 22.2 % (11.5-14.5)
[2018-10-17 06:01] LABS: CALCIUM 6.2 mg/dL (8.5-10.1); CARBON DIOXIDE 19.9 mmol/L (21-32); CHLORIDE SERUM 94 mmol/L (98-107); GLUCOSE SERUM 166 mg/dL (74-106); POTASSIUM SERUM 3.9 mmol/L (3.5-5.1); SODIUM SERUM 131 mmol/L (136-145)
[2018-10-17 06:02] LABS: CREATININE SERUM 5.9 mg/dL (0.6-1.0)
--- NOTE | 2018-10-17 06:05 | NUR ---
PTT 66.5. HEPARIN GTT TITRATED TO 1200 UNITS/HR FROM 1400 UNITS/HR PER HEPARIN DRIP PROTOCOL. PTT ORDERED FOR 1000 AM, 10/17. WILL CONT TO MONITOR.
--- NOTE | 2018-10-17 07:03 | NUR ---
GAVE REPORT TO LUDWIN DONALD. UPDATES PROVIDED, QUESTIONS ANSWERED. ENODORSED CARE.
--- NOTE | 2018-10-17 12:21 | NUR ---
LAB CALLED WITH PTT 68.8. HEPARIN DRIP TITRATED DOWN TO 1000 U/HR PER PROTOCOL. NEXT PTT ORDERED FOR 1630. WILL CONTINUE TO MONITOR.
--- NOTE | 2018-10-17 15:18 | NUR ---
SCREEN FOR LOW BENITA SCALE AT RISK PRESSURE ULCER INJURY PREVENTION INTERVENTIONS IN PLACE. -TURN AND REPOSITION PATIENT Q 2H OFFLOAD LEFT AND RIGHT HIPS -ASSESS AND MONITOR SKIN CONDITION DURING POSITION CHANGE -OFFLOAD BILATERAL HEELS BY PLACING PILLOWS UNDER CALVES AT ALL TIMES, UNLESS OTHERWISE CONTRAINDICATED -PRESSURE REDISTRIBUTION SURFACE THERAPY -KEEP SKIN CLEAN AND DRY AT ALL TIMES.
--- NOTE | 2018-10-17 16:50 | NUR ---
PATIENT'S HEART RHYTHM CHANGED FROM NSR WITH A. FIB AT 1630 WITH HR IN LOW 100'S. EKG ORDERED. WILL CONTINUE TO MONITOR.
--- NOTE | 2018-10-17 17:35 | NUR ---
MAGDIEL LEGISLATIVE ADVOCATE MADE AWARE PATIENT IS IN CONTROLLED A. FIB WITH HR RANGING IN THE 90-LOW 100'S. NO NEW ORDERS AT THIS TIME. WILL CONTINUE TO MONITOR.
--- NOTE | 2018-10-17 19:30 | NUR ---
DR. PADRON AT BEDSIDE ASSESSING PT AND UPDATED FAMILY ON POC AND DISEASE PROCESS. FAMILY AT BEDSIDE AGREES AND VERBALIZES UNDERSTANDING. UPDATES PROVIDED TO DR. PADRON ON PT'S STATUS. NO NEW ORDERS AT THIS TIME.
--- NOTE | 2018-10-17 20:38 | NUR ---
PATIENT HAD AN AUDIBLE GURGLING, ADDED 2.5 ml's TO CUFF AND GURGLING WENT AWAY. SPO2 MAINTAINED AT 99% AND TIDAL VOLUMES IN THE 400'S.
--- NOTE | 2018-10-17 21:20 | NUR ---
PTT 47.0, THERAPEUTIC X2 PER HEPARIN DRIP PROTOCOL. HEPARIN DRIP REMAINS @ 1000 UNITS/HR. WILL ORDER AM DAILY PTT LAB.
--- NOTE | 2018-10-17 23:35 | NUR ---
DR. MURRAY AT BEDSIDE FOR ASSESSMENT. UPDATES PROVIDED, QUESTIONS ANSWERED. NO NEW ORDERS AT THIS TIME.
[2018-10-18] VITALS (16 sets, daily range): BP systolic 11–123; BP diastolic 53–77
[2018-10-18 05:30] LABS: BASOPHIL % 0.1 % (0-2); PLATELET COUNT 171 x10^3mcL (130-400)
[2018-10-18 05:33] LABS: RED CELL DISTRIBUTION WIDTH 22.8 % (11.5-14.5)
[2018-10-18 05:46] LABS: CARBON DIOXIDE 23.3 mmol/L (21-32); CHLORIDE SERUM 94 mmol/L (98-107); GLUCOSE SERUM 260 mg/dL (74-106); POTASSIUM SERUM 3.3 mmol/L (3.5-5.1); SODIUM SERUM 132 mmol/L (136-145)
--- NOTE | 2018-10-18 05:54 | NUR ---
LAB CALLED PTT 64.2, THERAPEUTIC AND NO CHANGE PER HEPARIN DRIP PROTOCOL. HEPARIN DRIP REMAINS @ 1000 UNITS/HR. WILL ORDER AM DAILY PTT LAB FOR TOMORROW.
[2018-10-18 05:56] LABS: CALCIUM 5.4 mg/dL (8.5-10.1); CREATININE SERUM 6.2 mg/dL (0.6-1.0)
--- NOTE | 2018-10-18 05:58 | NUR ---
LAB CALLED, CRITICAL LAB BUN 73, CREATININE 6.2, CALCIUM 5.4. DR. GUTHRIE MADE AWARE VIA TELEPHONE. NO NEW ORDERS AT THIS TIME.
--- NOTE | 2018-10-18 05:58 | NUR ---
LAB CALLED, CRITICAL LAB BUN 73, CREATININE 6.2, CALCIUM 5.4, POTASSIUM 3.3 DR. GUTHRIE MADE AWARE VIA TELEPHONE. NO NEW ORDERS AT THIS TIME.
--- NOTE | 2018-10-18 07:15 | NUR ---
RECIEVED REPORT HAILEY MASCORRO, WILL RESUME CARE.
--- NOTE | 2018-10-18 07:24 | NUR ---
GAVE REPORT TO MELVINRN, CARMENCITA MASCORRO. UPDATES PROVIDED, QUESTIONS ANSWERED. ENDORSED CARE.
--- NOTE | 2018-10-18 08:00 | NUR ---
APPLIED FOAM BOOTS TO BLE TO RELIEF PRESSURE OFF FOOT FROM TOUCHING FOOT OF BED.
--- NOTE | 2018-10-18 11:10 | NUR ---
ASSESSED PT AT BEDSIDE. PT IS NOT ON SEDATION AND UNABLE TO GESTURE OR FOLLOW VERBAL COMMANDS. PROVIDED VAP CARE AND RESPOSITION PT AT BEDSIDE.
--- NOTE | 2018-10-18 12:15 | NUR ---
PROVIDED UPDATES TO DR. WARE MADE AWARE OF HR TRENDING 150'S. PER MD TO MEDICATE PT IF HR 160.
--- NOTE | 2018-10-18 13:42 | NUR ---
PROVIDED UPDATED PT STATUS TO Maureen SCHAEFFER. PER NO HD TODAY AND LASIX BID IVP. AWAITING FOR ORDERS.
--- NOTE | 2018-10-18 13:53 | NUR ---
Initial Nutrition Assessment- Dx: Acute Coronary Syndrome, Renal Insufficiency PMHx: HTN, High CHOL, Hypothyroid, Endocarditis, GERD PSHx: Knee replacement Labs: (10/18) Na 132L, K 3.3L, BG 260H. BUN 73H, Cre 6.2H, Ca 5.4L, RBC 3.43L Meds: Ativan, Colace, Liquid Iron, Os-matt w/ VIT D, Pepcid, Proamatine, Synthroid, Heparin, Zofran Nutrition Support: Vital AF 1.2 at 30ml/hr, FWF 50ml Q6H via OGT x 2 days Provides 864 kcal, 54 gm protein and 584ml free water daily which meets 44% of estimated calories and 52% of lower end of estimated protein needs. Residuals: (10/18) 20ml, (10/17) 100ml, 20ml, 10ml, 50ml, 50ml, (10/16) 50ml I and O: (10/18) 2498/650 +1848, (10/17) 3002/50 +2952, (10/16) 3298/360 +2938 Ht: 5'10 Wt: 242 lb, 110 kg BMI: 38.4 kg/m2 (Obese Class 2) IBW: 150 lb, 68 kg, Adj IBW: 173 lb, 79kg %IBW: 161 UBW: 200 lb Age: 73 yrs old/female Food Allergies: none Skin: skin tear to sacral area. Carlos: 12 Edema: trace edema to RUE GI: abd is soft, w/ hypoactive bowel sounds. 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 Per providers notes, the patient was admitted to the hospital, was found to be in atrial fibrillation with rapid ventricular response. The patient was started on amiodarone. The patient was brought to the ICU; however, subsequently became hypotensive, went into shock and suffered PEA cardiac arrest for about 10 minutes. Pt may need hemodialysis once hemodynamically stable. Pt remains orally intubated but not sedated, obtunded. Family at bedside. Pt reported that pt might have lost some weight but amount and timeframe are unknown. Daughter Tawana answered RD interview. She stated that pt eats home cooked meals and some fast food. 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 Problem with: no c/o N/V/D/C. Problems with: Chewing: yes, pt is orally intubated. Swallowing: yes Current appetite: n/a on EN Recent wt change: unknown %wt change: n/a Vitamin/Supplement use: none Special diet at home: Regular Physical activity: unknown Education: is not appropriate at this time. Estimated Nutritional Needs Based on current body weight 110 kg; Ve: 11; T: 36.8'C Energy: 1947 kcal/d (REE- PSU 2009 for Obese ICU pt on vent support) Protein: 103-158 g/d (1.3-2 g/kg Adj IBW- for elevated Renal labs and Sepsis) Fluid: 1947 ml/d (1 ml/kcal) or per doctor Nutrition Diagnosis 1. Inadequate EN infusion r/t current EN regimen AEB EN intake <80% of estimated needs. Intervention 1. Recommend increase EN infusion. Vital AF 1.2 at 60ml/hr (goal). Which will provide 1728 kcal, 105 gm protein and 1168ml free water from EN alone. Which will meet 89% of estimated calorie needs and 105% of lower end of estimated protein needs. Monitor/Evaluate Goal: TF intake at least 80-100% estimated needs for ICU pt. Monitor: TF tolerance, Labs, GI function, weights F/U in 2-3 days as high risk (10/20-10/21)
--- NOTE | 2018-10-18 13:59 | NUR ---
DR. RAHMAN ORDER TO LOWERED D5 WITH BICARB TO 30ML/HR. ADJUSTED TO 30LM/HR AT BEDSIDE.
--- NOTE | 2018-10-18 19:04 | NUR ---
SKIN INTACT TO BLE. NO SIGNS OF SKIN BREAK DOWN.
--- NOTE | 2018-10-18 19:06 | NUR ---
PROVIDED UPDATES TO DR. LIND OVER PHONE. PER , PT'S ABX IS AFFECTING KIDNEY FUNCTION AND WANTS VANCOMYCIN D/C. WILL ENTER ORDER.
--- NOTE | 2018-10-18 19:42 | NUR ---
RECEIVED REPORT FROM LUDWIN CHARLES. PT IS OBTUNDED WITH EYES REMAINING OPEN. PT IS INTUBATED WITH NO SEDATION. 7.0 ETT AT 24 CM AT LL. LUNG SOUNDS SHOW WHEEZING TO BILATERAL UPPER LOBES, DIMINSHED TO BILATERAL LOWER LOBES. OGT PATENT AND INTACT. VITAL AF INFUSING AT 30 ML/HR WITH 10 ML OF RESIDUAL. S1 S2 HEART SOUNDS AUSUCLTATED. PT IN CONTROLLED A FIB. CAP REFILL <3 SECONDS X4. SKIN IS WARM AND CONSISTENT WITH ETHNICITY. PULSES ARE MODERATE X2 BUE, WEAK X2 BLE. LIJ CVC PATENT, DRESSING CDI. SODIUM BICARB INFUSING AT 30 ML/HR. HEPARIN INFUSING AT 1000 U/HR. ABD IS SOFT AND ROUNDED WITH ACTIVE BOWEL SOUNDS X4Q. MARQUEZ DRAINING VIA GAVITY. URINE IS YELLOW WITH FAIR OUTPUT. SKIN INTACT. ALL QUESTIONS AND CONCERNS ANSWERED.
--- NOTE | 2018-10-18 20:33 | NUR ---
RT AT BEDSIDE FOR BREATHING TREATMENT.
--- NOTE | 2018-10-18 22:48 | NUR ---
CALLED DR. GUTHRIE FOR AN ORDER FOR ARTIFICIAL TEARS, AT PATIENT'S FAMILY'S REQUEST. WILL FOLLOW THROUGH WITH ORDER.
[2018-10-19] VITALS (7 sets, daily range): BP systolic 96–114; BP diastolic 65–75
--- NOTE | 2018-10-19 00:05 | NUR ---
DR. MURRAY AT BEDSIDE. ALL QUESTIONS AND CONCERNS ANSWERED. NO CHANGES MADE TO CARE.
--- NOTE | 2018-10-19 05:24 | NUR ---
PT PROVIDED WITH FULL BED BATH, LINEN CHANGE, GOWN CHANGE, AND SUCTION TUBING CHANGE. PT HAD ONE LARGE GREEN SEMI FORMED STOOL. PT TOLERATED WELL.
[2018-10-19 05:34] LABS: BASOPHIL % 1.5 % (0-2); PLATELET COUNT 223 x10^3mcL (130-400)
[2018-10-19 05:58] LABS: CARBON DIOXIDE 22.2 mmol/L (21-32); CHLORIDE SERUM 95 mmol/L (98-107); GLUCOSE SERUM 278 mg/dL (74-106); PHOSPHOROUS 6.4 mg/dL (2.5-4.9); POTASSIUM SERUM 3.1 mmol/L (3.5-5.1); SODIUM SERUM 136 mmol/L (136-145)
[2018-10-19 06:01] LABS: CALCIUM 5.4 mg/dL (8.5-10.1); CREATININE SERUM 5.3 mg/dL (0.6-1.0)
--- NOTE | 2018-10-19 06:14 | NUR ---
PTT CAME BACK AT 45.0. PROVIDED A BOLUS OF 4700 UNITS, AND INCREASED DRIP FROM 1000 U/HR TO 1200 U/HR.
--- NOTE | 2018-10-19 10:32 | NUR ---
FAMILY MEETING WITH MAGDIEL DELGADO HULL MOLDER, DAUGHTER TABATHA DISCUSSED PLAN OF CARE. DISCUSSED PLAN OF CARE, RESPECTING PT'S WISHES TO GIVE HER RESPECT AND DIGNITY. DAUGHTERS WANT TO GIVE COMFORT PALLATIVE CARE. DAUGHTERS STATED, " I WANT TO WAIT FOR OTHER FAMILY MEMBERS TO SAY THEIR GOODBYES". AWAITING FOR PT'S IMMEDIATE FAMILY TO BE READY TO START PALLATIVE EXTUBATION PROCESS.
--- NOTE | 2018-10-19 10:48 | NUR ---
ESTEFANY PINTO CONFIRM FAMILY IS READY FOR PALLATIVE CARE. MADE AWARE TO MAGDIEL IS SUPPORT ANALYST. AWAITING FOR ORDERS.
--- NOTE | 2018-10-19 11:02 | NUR ---
PATIENT'S HR IN 50'S. AMIODORONE DRIP TITRATED OFF FROM 0.5 MG/HR. PAGED DR HOLLIDAY AND MADE AWARE.
--- NOTE | 2018-10-19 11:20 | NUR ---
D/C HEPARIN DRIP AND D5 WITH BICARB, TUBE FEEDING. PER PROTOCOL TO START MORPHINE AT 5MG/HR. PROVIDED EDUCATION TO PT AND PT'S FAMILY OF MORPHINE.
--- NOTE | 2018-10-19 11:50 | NUR ---
FACIAL GRIMACING INCREASED MORPHINE DRIP TO 7MG/HR PER PROTOCOL.
--- NOTE | 2018-10-19 12:05 | NUR ---
PT IS MOANING INCREASED MORPHINE TO 9MG/HR.
--- NOTE | 2018-10-19 12:16 | NUR ---
TSERING REQUEST TO STAY AT BEDSIDE FOR PALLATIVE EXTUBATION. MERISSA DENT RT, MYSELF AND [place] RN AT BEDSIDE. PT WAS ORALLY SUCTIONED AND ETT WAS PULLED. S/P EXTUBATION PROVIDED ORAL CARE AND PERSONAL CARE.
--- NOTE | 2018-10-19 12:20 | NUR ---
RESP DISTRESS INCREASED MORPHINE TO 11MG/HR.
--- NOTE | 2018-10-19 12:36 | NUR ---
AUDIBLE WHEEZING INCREASE MORPHINE TO 13MG/HR.
--- NOTE | 2018-10-19 12:50 | NUR ---
HR 101 INCREASED MORPHIN TO 15MG/HR.
--- NOTE | 2018-10-19 13:14 | NUR ---
PT MOANING INCREASED MORPHIN TO 15MG/HR.
--- NOTE | 2018-10-19 13:31 | NUR ---
HR 103 INCRESED MORPHIN TO 17MG/HR.
--- NOTE | 2018-10-19 13:59 | NUR ---
PT MOANING INCREASED MORPHIN DRIP TO 19MG/HR.
--- NOTE | 2018-10-19 14:32 | NUR ---
HR 107 INCREASED MORPHIN TO 21MG/HR.
--- NOTE | 2018-10-19 14:45 | NUR ---
PATIENT'S HR 105. MORPHINE TITRATED FROM 21 MG/HR TO 23 MG/HR.
--- NOTE | 2018-10-19 15:00 | NUR ---
HR 110, MORPHINE INCREASED TO 25 MG/HR.
--- NOTE | 2018-10-19 15:15 | NUR ---
HR 111, MORPHINE INCREASED TO 27 MG/HR.
--- NOTE | 2018-10-19 15:30 | NUR ---
PT IS MOANING INCREASED MORPHIN TO 29MG/HR.
--- NOTE | 2018-10-19 15:54 | NUR ---
PT IS GROANING INCREASED MORPHIN TO 31MG/HR.
--- NOTE | 2018-10-19 16:25 | NUR ---
PT HR 111, MORPHINE INCREASED TO 33 MG/HR.
--- NOTE | 2018-10-19 17:28 | NUR ---
HR 110, MORPHINE INCREASED TO 35 MG/HR.
--- NOTE | 2018-10-19 17:45 | NUR ---
PT IS MOANING INCREASED MORPHINE TO 37MG/HR.
--- NOTE | 2018-10-19 18:00 | NUR ---
HR 101 INCREASE MORPHIN TO 39MG/HR.
--- NOTE | 2018-10-19 19:13 | NUR ---
RECEIVED REPORT FROM LUDWIN CHARLES. PT IS EXTUBATED, AND CURRENTLY UNDERGOING PALLIATIVE CARE. WILL BE MONITORING PATIENT FOR COMFORT.
--- NOTE | 2018-10-19 19:30 | NUR ---
PT HR > 100. TITRATED MORPHINE FROM 39 MG TO 41 MG.
--- NOTE | 2018-10-19 19:46 | NUR ---
PT HR > 100. TITRATED MORPHINE FROM 41 MG TO 43 MG.
--- NOTE | 2018-10-19 20:22 | NUR ---
TITRATED MORPHINE FROM 43 MG TO 45 MG FOR FACIAL GRIMACING.
--- NOTE | 2018-10-19 21:11 | NUR ---
PT PRONOUNCED BY DR. GUTHRIE. MORPHINE DRIP STOPPED.
--- NOTE | 2018-10-19 21:50 | NUR ---
SPOKE WITH [employer] SPECIALIST. CASE NUMBER INCLUDES [id number].
--- NOTE | 2018-10-19 22:21 | NUR ---
SPOKE WITH [employer]Y PLAN SALES AGENT. PT RELEASED. CASED NUMBER INCLUDE [phone].
--- NOTE | 2018-10-19 23:08 | NUR ---
PT OFF FLOOR TO [facility] [place]. ALL PAPERWORK PROVIDED.
== END 2018-10-19 23:30 | disposition expired | DRG 193 ==
LOC: ED 10:09 → DU 12:36 → IC 12:36 → DU 13:32 → IC 10-15 10:41
PROVIDERS: Emergency Medicine; Internal Medicine; ADMIT Family Medicine
PROC: 5A1945Z Respiratory Ventilation, 24-96 Consecutive Hours (ICD-10-PCS; principal; 2018-10-15)
PROC: 0BH18EZ Insertion of Endotracheal Airway into Trachea, Via Natural or Artificial Opening Endoscopic (ICD-10-PCS; 2018-10-15)
PROC: 05HN33Z Insertion of Infusion Device into Left Internal Jugular Vein, Percutaneous Approach (ICD-10-PCS; 2018-10-15)
PROC: B544ZZA Ultrasonography of Left Jugular Veins, Guidance (ICD-10-PCS; 2018-10-15)
DX: I33.0 Acute and subacute infective endocarditis (principal); I21.A1 Myocardial infarction type 2; I46.9 Cardiac arrest, cause unspecified; J96.01 Acute respiratory failure with hypoxia; N17.0 Acute kidney failure with tubular necrosis; I42.9 Cardiomyopathy, unspecified; E83.51 Hypocalcemia; I50.23 Acute on chronic systolic (congestive) heart failure; I11.0 Hypertensive heart disease with heart failure; I48.91 Unspecified atrial fibrillation; Z51.5 Encounter for palliative care; I35.0 Nonrheumatic aortic (valve) stenosis; G20 Parkinson's disease; E87.6 Hypokalemia; E78.5 Hyperlipidemia, unspecified; Z96.651 Presence of right artificial knee joint; Z68.37 Body mass index [BMI] 37.0-37.9, adult; Z86.73 Personal history of transient ischemic attack (TIA), and cerebral infarction without residual deficits
CPT/HCPCS: 36556; 36600; 83880; 94150; A4628; G0378; J0171; J0282; J0696; J1265; J1450; J1642; J1644; J1720; J1940; J2060; J2250; J2270; J2370; J3010; J3370; J3490; J7030; J7040; J7050; J7620; P9016; Q0092